=== PATIENT | female | born 1970 | race Caucasian/White ===

== ENCOUNTER 2018-11-22 17:19 | Emergency (ER) | payer OTHER ==
[2018-11-22 17:27] VITALS: BP 112/74
--- NOTE | 2018-11-22 18:29 | ED ---
GI/ HPI - HPI Summary HPI Summary: 48 yr old female with Mirena IUD. She states her and she three days ago were having intercourse and he felt something unusual. She wanted to know if the IUD was still in place. She has no pain, bleeding or spotting. She has had this in for over two months. No other complaints or concerns. - History of Current Complaint Chief Complaint: UCGU Time Seen by Provider: 11/22/18 17:59 Stated Complaint: IUD FEELS FUNNY Hx Last Menstrual Period: mirena, months ago Pain Intensity: 0 - Allergy/Home Medications Allergies/Adverse Reactions: Allergies Allergy/AdvReac Type Severity Reaction Status Date / Time phenytoin [From Dilantin] Allergy Unknown Verified 11/22/18 17:27 Reaction Details PMH/Surg Hx/FS Hx/Imm Hx Endocrine/Hematology History: Denies: Hx Diabetes, Hx Thyroid Disease Cardiovascular History: Denies: Hx Hypertension, Hx Pacemaker/ICD Respiratory History: Denies: Hx Asthma, Hx Chronic Obstructive Pulmonary Disease (COPD) GI History: Denies: Hx Ulcer History: Reports: Other Problems/Disorders - hx of UTI in past Denies: Hx Dialysis, Hx Renal Disease Musculoskeletal History: Reports: Other Musculoskeletal History - broke right ankle in 2013 Sensory History: Reports: Hx Contacts or Glasses Denies: Hx Hearing Aid Opthamlomology History: Reports: Hx Contacts or Glasses Neurological History: Reports: Hx Seizures - hx of seizures since childhood Psychiatric History: Denies: Hx Panic Disorder - Surgical History Surgery Procedure, Year, and Place: X2 Hx Anesthesia Reactions: No Infectious Disease History: No Infectious Disease History: Denies: Hx Hepatitis, Hx Human Immunodeficiency Virus (HIV), Traveled Outside the [place] in Last 30 Days - Family History Known Family History: Positive: None - Social History Occupation: Employed Full-time Alcohol Use: None Substance Use Type: Reports: None Smoking Status (MU): Never Smoked Tobacco Review of Systems Constitutional: Negative Positive: other - question if IUD is in our out. All Other Systems Reviewed And Are Negative: Yes Physical Exam Triage Information Reviewed: Yes Vital Signs On Initial Exam: Initial Vitals Temp Pulse Resp BP Pulse Ox 96.9 F 97 18 112/74 99 11/22/18 17:23 11/22/18 17:23 11/22/18 17:23 11/22/18 17:23 11/22/18 17:23 Vital Signs Reviewed: Yes Appearance: Positive: Well-Appearing, No Pain Distress Skin: Positive: Warm, Skin Color Reflects Adequate Perfusion Head/Face: Positive: Normal Head/Face Inspection Eyes: Positive: EOMI ENT: Positive: Normal ENT inspection Neck: Positive: Nontender Respiratory/Lung Sounds: Positive: Clear to Auscultation, Breath Sounds Present Cardiovascular: Positive: RRR. Negative: Murmur Abdomen Description: Positive: Nontender Pelvic Exam: Positive: Speculum Exam Normal - there is an IUD string coming from the cervix that is clearly seen and it is about 1.25 inches in length. I do not see the Mirena or IUD portion at all at the cervical os. Neurological: Positive: Sensory/Motor Intact, Alert, Oriented to Person Place, Time, CN Intact II-III Psychiatric: Positive: Normal Diagnostics - Vital Signs Vital Signs Temp Pulse Resp BP Pulse Ox 11/22/18 17:23 96.9 F 97 18 112/74 99 - Laboratory Lab Statement: Any lab studies that have been ordered have been reviewed, and results considered in the medical decision making process. GIGU Course/Dx - Course Course Of Treatment: 48 yr old female with neg HCG and mirena that appears visually to be in place. She is being referred to ER for US confirmation of intrauterine placement for sure. The patient was verbally told this. - Diagnoses Provider Diagnoses: IUD check up Discharge - Sign-Out/Discharge Documenting (check all that apply): Patient Departure All imaging exams completed and their final reports reviewed: No Studies - Discharge Plan Condition: Good Disposition: HOME-RECOMMEND TO ED Patient Education Materials: Levonorgestrel (Into the uterus) Referrals: Angelita Bryan MD [Primary Care Provider] - Additional Instructions: be sure to go to the ER from here for US imaging to definitively see the placement of the IUD. - Billing Disposition and Condition Condition: GOOD Disposition: Home-Recommend to ED
== END 2018-11-22 18:30 | disposition home health service (06) ==
LOC: UCEAST 17:19
DX: Z30.431 Encounter for routine checking of intrauterine contraceptive device (principal); Z88.8 Allergy status to other drugs, medicaments and biological substances
CPT/HCPCS: 84702; 99212; G0463

== ENCOUNTER 2019-01-08 08:29 | Emergency (ER) | payer OTHER ==
--- NOTE | 2019-01-08 09:55 | UC ---
Head Injury HPI - HPI Summary HPI Summary: Patient slipped on the ice while walking through a door this morning. Struck the back of her head on the pavement. Complains of headache, lightheadedness/ dizziness and feeling sluggish. Denies any weakness. Has a history of a seizure disorder but did not have a seizure. No visual disturbances. Has slight nausea but no vomiting. No LOC. - History Of Current Complaint Chief Complaint: UCHeadInjury Stated Complaint: HEAD INJURY, DIZZINESS Time Seen by Provider: 01/08/19 09:44 Hx Obtained From: Patient Hx Last Menstrual Period: iud Onset/Duration: Sudden Onset, Lasting Hours, Still Present Severity Currently: Moderate Severity Initially: Moderate Pain Intensity: 5 Pain Scale Used: 0-10 Numeric Character: Dull Aggravating Factor(s): Nothing Alleviating Factor(s): Nothing Associated Signs And Symptoms: Positive: Nausea. Negative: LOC (Time In Secs./ Mins/Hrs), Confusion, Memory Loss, Seizure, Epistaxis, Neck Pain, Vomiting - Allergies/Home Medications Allergies/Adverse Reactions: Allergies Allergy/AdvReac Type Severity Reaction Status Date / Time phenytoin [From Dilantin] Allergy Unknown Verified 01/08/19 08:43 Reaction Details PMH/Surg Hx/FS Hx/Imm Hx Neurological History: Seizures - Surgical History Surgical History: Yes Surgery Procedure, Year, and Place: X2 - Family History Known Family History: Positive: None - Social History Alcohol Use: None Substance Use Type: None Smoking Status (MU): Never Smoked Tobacco - Immunization History Most Recent Influenza Vaccination: last flu season Most Recent Tetanus Shot: unknown Most Recent Pneumonia Vaccination: N/A Review of Systems All Other Systems Reviewed And Are Negative: Yes Constitutional: Positive: Negative Skin: Positive: Bruising ENT: Positive: Negative Respiratory: Positive: Negative Cardiovascular: Positive: Negative Gastrointestinal: Positive: Nausea Neurological: Positive: Headache. Negative: Weakness, Paresthesia, Numbness Physical Exam Triage Information Reviewed: Yes Appearance: Well-Appearing, No Pain Distress, Well-Nourished Vital Signs: Initial Vital Signs Temp 98.7 F 01/08/19 08:38 Pulse 82 01/08/19 08:38 Resp 16 01/08/19 08:38 BP 106/78 01/08/19 08:38 Pulse Ox 100 01/08/19 08:38 Vital Signs Reviewed: Yes Eyes: Positive: Conjunctiva Clear, Other: - PERRL, EOMI ENT: Positive: Hearing grossly normal, Pharynx normal, TMs normal - NO HEMOTYMPANUM Neck: Positive: Supple, Nontender, No Lymphadenopathy Respiratory Exam: Normal Cardiovascular Exam: Normal Abdomen Description: Positive: Soft Musculoskeletal: Positive: No Edema Neurological: Positive: Alert, Other: - CN II-XII GROSSLY INTACT BILATERALLY. RAPID ALTERNATING MOVEMENTS INTACT. NEG PRONATOR DRIFT. NEG ROMBERG. 5/5 STRENGTH. HEEL TO GAYTAN INTACT BILATERALLY. TANDEM GAIT INTACT. FINGER TO NOSE INTACT BUT SLOW. Psychological: Positive: Age Appropriate Behavior Skin: Positive: Other - SLIGHT ERYTHEMA POSTERIOR SKULL AT SITE OF IMPACT Diagnostics - Radiology CT HEAD W/O CONTRAST Radiology Interpretation Completed By: Radiologist Summary of Radiographic Findings: UNREMARKABLE Head Injury Course/Dx - Differential Dx/Diagnosis Provider Diagnosis: Concussion Discharge - Sign-Out/Discharge Documenting (check all that apply): Patient Departure All imaging exams completed and their final reports reviewed: Yes - Discharge Plan Condition: Stable Disposition: HOME Prescriptions: Ondansetron ODT TAB* [Zofran Odt TAB*] 4 mg PO Q6H PRN #20 tab.odt PRN Reason: Nausea/Vomiting Patient Education Materials: Concussion (ED) Referrals: Angelita Bryan MD [Primary Care Provider] - If Needed Additional Instructions: CT HEAD TODAY UNREMARKABLE. OKAY FOR TYLENOL TODAY FOR HEADACHE. STARTING TOMORROW CAN TAKE IBUPROFEN IF NEEDED. LIMIT SCREEN TIME AND AVOID ACTIVITIES THAT COULD RESULT IN ADDITIONAL HEAD INJURY. NO SPORTS FOR AT LEAST A WEEK. FOLLOW-UP WITH PCP IF SYMPTOMS ARE PERSISTENT AFTER 1 WEEK. GO TO THE ED WITHOUT FAIL IF YOU DEVELOP UNEQUAL PUPILS, VISUAL DISTURBANCE, GAIT INSTABILITY, SPEECH DIFFICULTY, NAUSEA/VOMITING, WORSENING HEADACHE, DIZZINESS, CONFUSION, WEAKNESS OR ANY OTHER CONCERNING SYMPTOMS. [facility] [phone] (M-F 8AM-4PM) [email or web address] (FOR HELP, INFO OR TO CONNECT WITH A SUPPORT GROUP) - Billing Disposition and Condition Condition: STABLE Disposition: Home
[2019-01-08 11:15] VITALS: BP 110/71
== END 2019-01-08 11:13 | disposition home or self-care (01) ==
LOC: UCEAST 08:29
DX: S06.0X0A Concussion without loss of consciousness, initial encounter (principal); Z88.8 Allergy status to other drugs, medicaments and biological substances; W22.8XXA Striking against or struck by other objects, initial encounter; Y92.9 Unspecified place or not applicable
CPT/HCPCS: 70450; 99212; G0463